=== PATIENT | male | born 1965 ===

== ENCOUNTER 2017-05-07 15:47 | Emergency (ER) | payer OTHER ==
[~2017-05-07] VITALS: Ht 162.6 cm; Wt 76.8 kg
[2017-05-07] MEDS ORDERED: normal saline 1000ML IV soln IV ONE (16:10)
[2017-05-07] MEDS ORDERED: acetaminophen 325mg tablet PO ONE (16:10)
[2017-05-07 16:37] LABS: BASOPHILS % (AUTO) 0.1 % (0-1); EOSINOPHILS # (AUTO) 0.3 X10'3 (0-0.9); EOSINOPHILS % (AUTO) 3.8 % (0-6); HEMATOCRIT 37.7 % (42.0-52.0); HEMOGLOBIN 13.4 g/dl (14.0-17.9); LYMPHOCYTES # (AUTO) 0.8 X10'3 (1.1-4.8); LYMPHOCYTES % (AUTO) 10.1 % (21-51); MEAN CORPUSCULAR HGB CONC 35.7 % (33.0-36.5); MEAN CORPUSCULAR VOLUME 95.3 FL (78-98); MEAN PLATELET VOLUME 7.2 FL (7.4-10.4); MONOCYTES # (AUTO) 1.1 X10'3 (0-0.9); MONOCYTES % (AUTO) 13.7 % (2-12); NEUTROPHILS # (AUTO) 5.7 X10'3 (1.8-7.7); NEUTROPHILS % (AUTO) 72.3 % (42-75); PLATELET COUNT 102 X10'3 (140-440); RED BLOOD COUNT 3.96 X10'6 (4.70-6.10); RED CELL DISTRIBUTION WIDTH 13.6 % (11.5-14.5); WHITE BLOOD COUNT 7.9 X10'3 (4.5-11.0)
[2017-05-07 16:52] LABS: INR 1.3 INR; PARTIAL THROMBOPLASTIN TIME 31 SECONDS (22-32); PROTHROMBIN TIME 12.9 SECONDS (9.0-12.0)
[2017-05-07 17:02] LABS: ALANINE AMINOTRANSFERASE 92 U/L (12-78); ALBUMIN/GLOBULIN RATIO 0.3 (1.1-1.5); ALKALINE PHOSPHATASE 194 IU/L (46-116); ANION GAP 7 (8-16); ASPARTATE AMINO TRANSFERASE 61 U/L (10-37); BILIRUBIN,TOTAL 1.5 MG/DL (0.1-1.0); BLOOD UREA NITROGEN 8 MG/DL (7-18); CALCIUM 8.1 MG/DL (8.5-10.1); CHLORIDE 96 MMOL/L (99-107); CREATININE 0.89 MG/DL (0.60-1.10); GLUCOSE 395 MG/DL (70-104); MAGNESIUM 1.5 MG/DL (1.5-2.4); POTASSIUM 3.9 MMOL/L (3.5-5.1); SODIUM 129 MMOL/L (135-145); TOTAL CARBON DIOXIDE 25.6 MMOL/L (24-32); TOTAL PROTEIN 7.8 G/DL (6.4-8.2); eGFR 89 ML/MIN
[2017-05-07] MEDS ORDERED: normal saline 1000ml 1,000 ML IV ONE (17:05)
[2017-05-07] MEDS ORDERED: LIDOcaine 1.5% w/epinephrine 1:200,000 5ml ampul IJ ONE (17:25)
[2017-05-07 17:51] LABS: C-REACTIVE PROTEIN 9.61 MG/DL (0.0-0.5)
[2017-05-07 20:12] LABS: APPEARANCE,SYNOVIAL FLUID CLOUDY; COLOR,SYNOVIAL FLUID YELLOW; SYN RBC 388 /CU MM (0); SYN WBC 39750 /CU MM (0-200)
[2017-05-07 20:13] LABS: CRYSTAL ID, SYN FLD CA PYROPHOSPHATE; SYNOVIAL FLUID CRYSTALS QT FEW
[2017-05-07] MEDS ORDERED: triamcinolone acetonide 40mg/ml inj IJ ONE (20:40)
[2017-05-07] MEDS ORDERED: COLC0.6T69 PO (20:44)
[2017-05-07] MEDS ORDERED: doxycycline hyclate 100mg tablet.DR PO ONE (21:25)
[2017-05-07] MEDS ORDERED: DOXY100C43 PO (21:29)
[2017-05-07 21:54] VITALS: BP 143/86
== END 2017-05-07 21:55 | disposition home or self-care (01) ==
LOC: EEVIPCON 15:48 → ER 15:48
DX: M11.261 Other chondrocalcinosis, right knee (principal); E10.9 Type 1 diabetes mellitus without complications; Z60.2 Problems related to living alone; Z88.6 Allergy status to analgesic agent; Z79.4 Long term (current) use of insulin; Z79.899 Other long term (current) drug therapy
CPT/HCPCS: 20610; 36415; 73560; 80053; 83605; 83735; 84145; 85025; 85610; 85651; 85730; 86140; 87040; 87070; 87077; 87186; 89051; 89060; 93005; 96360; 96361; 99285; J3301; J3490; J7030

== ENCOUNTER 2017-05-10 08:46 | Inpatient (IN) | payer OTHER ==
[~2017-05-10] VITALS: Ht 162.6 cm; Wt 75.0 kg
[~2017-05-10 08:46] MED LIST: COLC0.6T69 PO; DOXY100C43 PO
[2017-05-10] MEDS ORDERED: CefTRIAXone 2gm/NS 100ml IVPB 100 ML IV ONE (08:55)
[2017-05-10] MEDS ORDERED: normal saline 1000ML IV soln IV ONE (08:55)
[2017-05-10] MEDS ORDERED: vancomycin/NS 1 GM ADD-VANTAGE 250 ML IV ONE (08:55)
[2017-05-10 09:38] LABS: BASOPHILS % (AUTO) 0.1 % (0-1); EOSINOPHILS % (AUTO) 0 % (0-6); HEMATOCRIT 37.7 % (42.0-52.0); HEMOGLOBIN 13.3 g/dl (14.0-17.9); LYMPHOCYTES # (AUTO) 0.6 X10'3 (1.1-4.8); LYMPHOCYTES % (AUTO) 5.1 % (21-51); MEAN CORPUSCULAR HEMOGLOBIN 33.9 PG (27.0-31.0); MEAN CORPUSCULAR HGB CONC 35.1 % (33.0-36.5); MEAN CORPUSCULAR VOLUME 96.7 FL (78-98); MEAN PLATELET VOLUME 8.3 FL (7.4-10.4); MONOCYTES # (AUTO) 0.9 X10'3 (0-0.9); MONOCYTES % (AUTO) 8.3 % (2-12); NEUTROPHILS # (AUTO) 9.4 X10'3 (1.8-7.7); NEUTROPHILS % (AUTO) 86.5 % (42-75); PLATELET COUNT 101 X10'3 (140-440); RED CELL DISTRIBUTION WIDTH 14.4 % (11.5-14.5); WHITE BLOOD COUNT 10.9 X10'3 (4.5-11.0)
[2017-05-10 09:50] LABS: INR 1.3 INR; PARTIAL THROMBOPLASTIN TIME 28 SECONDS (22-32); PROTHROMBIN TIME 13.6 SECONDS (9.0-12.0)
[2017-05-10 09:56] LABS: ALANINE AMINOTRANSFERASE 93 U/L (12-78); ALBUMIN 2.2 G/DL (3.4-5.0); ALBUMIN/GLOBULIN RATIO 0.4 (1.1-1.5); ALKALINE PHOSPHATASE 338 IU/L (46-116); ANION GAP 5 (8-16); BLOOD UREA NITROGEN 14 MG/DL (7-18); BUN/CREATININE RATIO 17.5 (5.4-32.0); CHLORIDE 96 MMOL/L (99-107); GLUCOSE 433 MG/DL (70-104); MAGNESIUM 2.1 MG/DL (1.5-2.4); SODIUM 130 MMOL/L (135-145); TOTAL CARBON DIOXIDE 29.1 MMOL/L (24-32); TOTAL PROTEIN 8.2 G/DL (6.4-8.2); eGFR > 90 ML/MIN
[2017-05-10 09:57] LABS: CLARITY,URINE CLOUDY (Clear); COLOR,URINE STRAW (Yellow); GLUCOSE, URINE >=1000 mg/dl (Neg); KETONES,URINE NEGATIVE (Neg); LEUKOCYTE ESTERASE ,URINE NEGATIVE (Neg); NITRITES, URINE NEGATIVE (Neg); OCCULT BLOOD,URINE NEGATIVE (Neg); PH,URINE 7.5 (4.8-8.0); PROTEIN,URINE NEGATIVE (Neg)
[2017-05-10 09:58] LABS: ASPARTATE AMINO TRANSFERASE 85 U/L (10-37); POTASSIUM 4.5 MMOL/L (3.5-5.1)
[2017-05-10 10:00] LABS: UA COLLECTION TYPE VOIDED
[2017-05-10 10:04] LABS: AMORPHOUS URATES 3+; BACTERIA,URINE NONE SEEN /HPF (Neg); RBC,URINE 0-2 /HPF (0-2); SQUAMOUS EPITHELIAL CELL,UR NONE SEEN /LPF (FEW); WBC,URINE 0-4 /HPF (0-4)
[2017-05-10] MEDS: normal saline 1000ml 1,000 ML IV ONE ×2 (11:10→11:52)
[2017-05-10] MEDS ORDERED: AMIT50TA11 PO (11:46)
[2017-05-10] MEDS ORDERED: HYDR-4069 PO (11:48)
[2017-05-10] MEDS ORDERED: LANTUS SQ (11:49)
[2017-05-10] MEDS ORDERED: acetaminophen 325mg tablet PO PRN (11:50)
[2017-05-10] MEDS ORDERED: dextrose 50%-water 50ml dispensing syringe IV PRN ×2 (11:50)
[2017-05-10] MEDS ORDERED: magnesium Cl slow-release 64mg tablet PO PRN (11:50)
[2017-05-10] MEDS ORDERED: dextrose ORAL solution 15 GM/59 ML bottle PO PRN ×2 (11:50)
[2017-05-10] MEDS ORDERED: MESSAGE TO PHARMACY PO ONE (11:50)
[2017-05-10] MEDS ORDERED: magnesium hydroxide 30ml (MOM) UD suspension PO PRN (11:50)
[2017-05-10] MEDS ORDERED: potassium Cl 40MEQ/NS 500ml 500 ML IV PRN ×2 (11:50)
[2017-05-10] MEDS ORDERED: mag hydrox/Alum hydrox/simeth 30ml oral suspension PO PRN (11:50)
[2017-05-10] MEDS ORDERED: potassium Cl 20 mEq SR tablet PO PRN ×2 (11:50)
[2017-05-10] MEDS ORDERED: glucagon, human recombinant 1mg kit SUBCUT PRN (11:50)
[2017-05-10] MEDS ORDERED: morphine 2 MG/ML inj. syringe IV PRN (11:50)
[2017-05-10] MEDS ORDERED: magnesium 2GM in 50ml NS 50 ML IV PRN (11:50)
[2017-05-10] MEDS ORDERED: magnesium 4gm in 100ml NS 100 ML IV PRN (11:50)
[2017-05-10] MEDS ORDERED: ondansetron/PF 4mg/2ml inj IV PRN (11:50)
[2017-05-10] MEDS ORDERED: INSU100V5 SQ (11:50)
[2017-05-10] MEDS ORDERED: LACT10SO6 PO (11:51)
[2017-05-10] MEDS: normal saline 1000ml 1,000 ML IV SCH ×2 (12:34→22:48)
[2017-05-10] MEDS: insulin Lispro (HumaLOG) vial - multi-dose SQ SCH ×3 (13:17→21:14)
[2017-05-10 14:20] VITALS: BP 138/79
[2017-05-10] MEDS ORDERED: FLU VACC QS2017-18 36MOS UP/PF 60 MCG/0.5 ML SYRINGE IMVAC ONE (15:45)
[2017-05-10] MEDS: cefazolin 1gm/NS 100mL 100 ML IV SCH ×2 (16:09→23:25)
[2017-05-10] MEDS ORDERED: famotidine 20mg tablet PO ONE (16:10)
[2017-05-10] MEDS: morphine 2 MG/ML inj. syringe IV PRN ×2 (16:18→20:12)
[2017-05-10] MEDS: lactobacillus rhamnosus 10,000 MMU CELLS/CAPSULE PO SCH (17:08)
[2017-05-10 18:00] VITALS: BP 127/67
[2017-05-10] MEDS ORDERED: vancomycin/NS 1 GM ADD-VANTAGE 250 ML IV SCH (18:00)
[2017-05-10] MEDS: hydrALAZINE 25 MG tablet PO SCH (19:20)
[2017-05-10] MEDS: lactulose 20gm/30ml cup PO SCH (19:20)
[2017-05-10] MEDS: amitryptiline 50mg tablet PO SCH (21:16)
[2017-05-10] MEDS: insulin glargine (Lantus) pen - multi-dose SQ SCH (21:16)
[2017-05-10 22:00] VITALS: BP 125/65
[2017-05-11] VITALS (14 sets, daily range): BP systolic 120–159; BP diastolic 69–107
[2017-05-11 06:21] LABS: BASOPHILS % (AUTO) 0.2 % (0-1); EOSINOPHILS # (AUTO) 0.1 X10'3 (0-0.9); HEMATOCRIT 35.9 % (42.0-52.0); HEMOGLOBIN 12.6 g/dl (14.0-17.9); LYMPHOCYTES # (AUTO) 0.8 X10'3 (1.1-4.8); LYMPHOCYTES % (AUTO) 8.8 % (21-51); MEAN CORPUSCULAR HEMOGLOBIN 33.6 PG (27.0-31.0); MEAN CORPUSCULAR HGB CONC 35.1 % (33.0-36.5); MEAN CORPUSCULAR VOLUME 95.6 FL (78-98); MEAN PLATELET VOLUME 7.3 FL (7.4-10.4); MONOCYTES # (AUTO) 0.7 X10'3 (0-0.9); MONOCYTES % (AUTO) 8.5 % (2-12); NEUTROPHILS # (AUTO) 7.1 X10'3 (1.8-7.7); NEUTROPHILS % (AUTO) 81.5 % (42-75); PLATELET COUNT 96 X10'3 (140-440); RED BLOOD COUNT 3.75 X10'6 (4.70-6.10); RED CELL DISTRIBUTION WIDTH 14.7 % (11.5-14.5); WHITE BLOOD COUNT 8.8 X10'3 (4.5-11.0)
[2017-05-11 06:38] LABS: ALANINE AMINOTRANSFERASE 89 U/L (12-78); ALBUMIN 1.9 G/DL (3.4-5.0); ALBUMIN/GLOBULIN RATIO 0.4 (1.1-1.5); ALKALINE PHOSPHATASE 231 IU/L (46-116); ANION GAP 6 (8-16); ASPARTATE AMINO TRANSFERASE 62 U/L (10-37); BLOOD UREA NITROGEN 12 MG/DL (7-18); BUN/CREATININE RATIO 15.6 (5.4-32.0); CALCIUM 8.5 MG/DL (8.5-10.1); CHLORIDE 102 MMOL/L (99-107); CREATININE 0.77 MG/DL (0.60-1.10); GLUCOSE 299 MG/DL (70-104); MAGNESIUM 1.8 MG/DL (1.5-2.4); POTASSIUM 4.1 MMOL/L (3.5-5.1); SODIUM 133 MMOL/L (135-145); TOTAL CARBON DIOXIDE 24.9 MMOL/L (24-32); TOTAL PROTEIN 7.2 G/DL (6.4-8.2); eGFR > 90 ML/MIN
[2017-05-11] MEDS ORDERED: vancomycin 1,000mg inj ONE (07:04)
[2017-05-11] MEDS ORDERED: BUPIVAcaine/PF 2.5 mg/ml (0.25%) 30ml vial ONE (07:04)
[2017-05-11] MEDS: morphine 2 MG/ML inj. syringe IV PRN ×4 (07:11→12:28)
[2017-05-11] MEDS: lactobacillus rhamnosus 10,000 MMU CELLS/CAPSULE PO SCH ×2 (07:30→15:19)
[2017-05-11] MEDS: K and/or MAG REPLACEMENT MC SCH (08:00)
[2017-05-11] MEDS: lactulose 20gm/30ml cup PO SCH ×2 (08:00→21:18)
[2017-05-11] MEDS: colchicine 0.6mg tablet PO SCH (08:00)
[2017-05-11] MEDS: hydrALAZINE 25 MG tablet PO SCH ×2 (08:00→21:18)
[2017-05-11] MEDS: cefazolin 1gm/NS 100mL 100 ML IV SCH ×2 (08:00→15:15)
[2017-05-11] MEDS ORDERED: insulin regular, human vial - multi-dose ONE (08:01)
[2017-05-11] MEDS ORDERED: ringers solution, lacted 1,000 ML IV SCH (08:06)
[2017-05-11] MEDS ORDERED: meperidine/PF 50mg/ml syringe IV PRN ×3 (08:10)
[2017-05-11] MEDS ORDERED: ondansetron/PF 4mg/2ml inj IV PRN (08:10)
[2017-05-11] MEDS ORDERED: morphine 2 MG/ML inj. syringe IV PRN (08:10)
[2017-05-11] MEDS ORDERED: midazolam 2 mg/2 ml injection ONE (08:10)
[2017-05-11] MEDS ORDERED: proCHLORperazine 10 MG/2 ml inj IV PRN (08:10)
[2017-05-11] MEDS ORDERED: fentaNYL/PF 50MCG/1 ML 2ML syringe ONE (08:21)
[2017-05-11] MEDS ORDERED: ondansetron/PF 4mg/2ml inj ONE (08:34)
[2017-05-11] MEDS ORDERED: propofol inj 20 ML IV ONE (08:34)
[2017-05-11] MEDS ORDERED: dexamethasone sod phosphate 4mg/ml inj. ONE (08:34)
[2017-05-11] MEDS ORDERED: LIDOcaine 2% (20mg/ml) 5ml vial ONE (08:34)
[2017-05-11] MEDS ORDERED: VANCOMYCIN LEVEL IV NR (09:30)
[2017-05-11] MEDS: insulin Lispro (HumaLOG) vial - multi-dose SQ SCH ×2 (13:19→18:46)
[2017-05-11] MEDS ORDERED: FLU VACC QS2017-18 36MOS UP/PF 60 MCG/0.5 ML SYRINGE IMVAC ONE (15:10)
[2017-05-11] MEDS: normal saline 1000ml 1,000 ML IV SCH ×2 (15:15→18:41)
[2017-05-11] MEDS: amitryptiline 50mg tablet PO SCH (21:17)
[2017-05-11] MEDS: insulin glargine (Lantus) pen - multi-dose SQ SCH (21:21)
[2017-05-12] MEDS: cefazolin 1gm/NS 100mL 100 ML IV SCH ×4 (00:12→23:38)
[2017-05-12] MEDS: normal saline 1000ml 1,000 ML IV SCH ×3 (04:14→19:00)
[2017-05-12] MEDS ORDERED: HYDROcodone/acetaminophen 5mg/325mg tablet PO PRN (05:10)
[2017-05-12] MEDS: HYDROcodone/acetaminophen 10/325mg tab PO PRN ×3 (05:21→19:09)
[2017-05-12 06:57] LABS: BASOPHILS % (AUTO) 0.3 % (0-1); EOSINOPHILS # (AUTO) 0.2 X10'3 (0-0.9); EOSINOPHILS % (AUTO) 1.3 % (0-6); HEMATOCRIT 38.6 % (42.0-52.0); HEMOGLOBIN 13.6 g/dl (14.0-17.9); LYMPHOCYTES # (AUTO) 1.2 X10'3 (1.1-4.8); LYMPHOCYTES % (AUTO) 9.5 % (21-51); MEAN CORPUSCULAR HEMOGLOBIN 33.9 PG (27.0-31.0); MEAN CORPUSCULAR HGB CONC 35.2 % (33.0-36.5); MEAN CORPUSCULAR VOLUME 96.5 FL (78-98); MEAN PLATELET VOLUME 7.6 FL (7.4-10.4); MONOCYTES # (AUTO) 1.3 X10'3 (0-0.9); MONOCYTES % (AUTO) 9.8 % (2-12); NEUTROPHILS # (AUTO) 10.1 X10'3 (1.8-7.7); NEUTROPHILS % (AUTO) 79.1 % (42-75); PLATELET COUNT 117 X10'3 (140-440); RED CELL DISTRIBUTION WIDTH 14.5 % (11.5-14.5); WHITE BLOOD COUNT 12.8 X10'3 (4.5-11.0)
[2017-05-12 07:29] LABS: ALANINE AMINOTRANSFERASE 82 U/L (12-78); ALBUMIN/GLOBULIN RATIO 0.4 (1.1-1.5); ALKALINE PHOSPHATASE 217 IU/L (46-116); ANION GAP 6 (8-16); ASPARTATE AMINO TRANSFERASE 53 U/L (10-37); BILIRUBIN,TOTAL 0.9 MG/DL (0.1-1.0); BLOOD UREA NITROGEN 13 MG/DL (7-18); BUN/CREATININE RATIO 15.1 (5.4-32.0); CALCIUM 8.8 MG/DL (8.5-10.1); CHLORIDE 100 MMOL/L (99-107); CREATININE 0.86 MG/DL (0.60-1.10); GLUCOSE 380 MG/DL (70-104); MAGNESIUM 1.9 MG/DL (1.5-2.4); POTASSIUM 3.9 MMOL/L (3.5-5.1); SODIUM 133 MMOL/L (135-145); TOTAL CARBON DIOXIDE 27.5 MMOL/L (24-32); TOTAL PROTEIN 7.5 G/DL (6.4-8.2); eGFR > 90 ML/MIN
[2017-05-12] MEDS: lactobacillus rhamnosus 10,000 MMU CELLS/CAPSULE PO SCH ×2 (07:33→17:21)
[2017-05-12] MEDS: hydrALAZINE 25 MG tablet PO SCH ×2 (07:34→20:50)
[2017-05-12] MEDS: lactulose 20gm/30ml cup PO SCH ×2 (07:34→20:00)
[2017-05-12 07:47] VITALS: BP 126/71
[2017-05-12] MEDS: colchicine 0.6mg tablet PO SCH (08:05)
[2017-05-12] MEDS: K and/or MAG REPLACEMENT MC SCH (08:06)
[2017-05-12] MEDS: insulin Lispro (HumaLOG) vial - multi-dose SQ SCH ×4 (08:59→20:56)
[2017-05-12 18:00] VITALS: BP 118/73
[2017-05-12] MEDS: vancomycin/NS 1 GM ADD-VANTAGE 250 ML IV SCH (18:59)
[2017-05-12] MEDS: amitryptiline 50mg tablet PO SCH (20:50)
[2017-05-12] MEDS: morphine 2 MG/ML inj. syringe IV PRN (20:57)
[2017-05-12] MEDS: insulin glargine (Lantus) pen - multi-dose SQ SCH (21:02)
[2017-05-12 22:00] VITALS: BP 107/63
[2017-05-13] MEDS: morphine 2 MG/ML inj. syringe IV PRN (01:57)
[2017-05-13] MEDS: vancomycin/NS 1 GM ADD-VANTAGE 250 ML IV SCH ×3 (02:49→19:12)
[2017-05-13 06:23] LABS: BASOPHILS % (AUTO) 0.1 % (0-1); EOSINOPHILS # (AUTO) 0.4 X10'3 (0-0.9); EOSINOPHILS % (AUTO) 2.9 % (0-6); HEMATOCRIT 37.3 % (42.0-52.0); LYMPHOCYTES # (AUTO) 1.1 X10'3 (1.1-4.8); LYMPHOCYTES % (AUTO) 8.1 % (21-51); MEAN CORPUSCULAR HEMOGLOBIN 33.8 PG (27.0-31.0); MEAN CORPUSCULAR HGB CONC 34.8 % (33.0-36.5); MEAN CORPUSCULAR VOLUME 97.2 FL (78-98); MEAN PLATELET VOLUME 7.4 FL (7.4-10.4); MONOCYTES % (AUTO) 7.7 % (2-12); NEUTROPHILS % (AUTO) 81.2 % (42-75); PLATELET COUNT 103 X10'3 (140-440); RED BLOOD COUNT 3.84 X10'6 (4.70-6.10); RED CELL DISTRIBUTION WIDTH 14.8 % (11.5-14.5); WHITE BLOOD COUNT 13.5 X10'3 (4.5-11.0)
[2017-05-13 06:45] LABS: ALANINE AMINOTRANSFERASE 80 U/L (12-78); ALBUMIN 1.8 G/DL (3.4-5.0); ALBUMIN/GLOBULIN RATIO 0.4 (1.1-1.5); ALKALINE PHOSPHATASE 307 IU/L (46-116); ANION GAP 7 (8-16); ASPARTATE AMINO TRANSFERASE 59 U/L (10-37); BLOOD UREA NITROGEN 13 MG/DL (7-18); BUN/CREATININE RATIO 16.3 (5.4-32.0); CALCIUM 7.8 MG/DL (8.5-10.1); CHLORIDE 102 MMOL/L (99-107); GLUCOSE 239 MG/DL (70-104); MAGNESIUM 1.6 MG/DL (1.5-2.4); POTASSIUM 3.6 MMOL/L (3.5-5.1); SODIUM 134 MMOL/L (135-145); TOTAL CARBON DIOXIDE 25.4 MMOL/L (24-32); TOTAL PROTEIN 6.8 G/DL (6.4-8.2); eGFR > 90 ML/MIN
[2017-05-13 07:12] VITALS: BP 114/61
[2017-05-13] MEDS: lactulose 20gm/30ml cup PO SCH ×3 (07:56→21:18)
[2017-05-13] MEDS: lactobacillus rhamnosus 10,000 MMU CELLS/CAPSULE PO SCH ×2 (07:56→16:54)
[2017-05-13] MEDS: colchicine 0.6mg tablet PO SCH (07:56)
[2017-05-13] MEDS: cefazolin 1gm/NS 100mL 100 ML IV SCH ×2 (07:56→15:41)
[2017-05-13] MEDS: hydrALAZINE 25 MG tablet PO SCH ×2 (07:56→21:18)
[2017-05-13] MEDS: K and/or MAG REPLACEMENT MC SCH (08:00)
[2017-05-13] MEDS: insulin Lispro (HumaLOG) vial - multi-dose SQ SCH ×3 (09:13→21:17)
[2017-05-13] MEDS: HYDROcodone/acetaminophen 10/325mg tab PO PRN ×2 (09:24→21:19)
[2017-05-13] MEDS: normal saline 1000ml 1,000 ML IV SCH ×2 (09:27→19:12)
[2017-05-13 11:12] LABS: HEP B CORE AB, TOT Negative (Negative); HEPATITIS C ANTIBODY >11.0 s/co ratio (0.0-0.9)
[2017-05-13 18:00] VITALS: BP 132/73
[2017-05-13] MEDS ORDERED: VANCOMYCIN LEVEL IV ONE (18:30)
[2017-05-13] MEDS: insulin glargine (Lantus) pen - multi-dose SQ SCH (21:18)
[2017-05-13] MEDS: amitryptiline 50mg tablet PO SCH (21:18)
[2017-05-13 22:00] VITALS: BP 132/70
[2017-05-14] MEDS: cefazolin 1gm/NS 100mL 100 ML IV SCH ×3 (00:16→16:52)
[2017-05-14] MEDS: vancomycin/NS 1 GM ADD-VANTAGE 250 ML IV SCH (03:09)
[2017-05-14 06:00] VITALS: BP 125/68
[2017-05-14 06:20] LABS: BASOPHILS % (AUTO) 0 % (0-1); EOSINOPHILS # (AUTO) 0.5 X10'3 (0-0.9); EOSINOPHILS % (AUTO) 4.7 % (0-6); HEMATOCRIT 36.9 % (42.0-52.0); HEMOGLOBIN 13.1 g/dl (14.0-17.9); LYMPHOCYTES # (AUTO) 1.3 X10'3 (1.1-4.8); LYMPHOCYTES % (AUTO) 12.9 % (21-51); MEAN CORPUSCULAR HEMOGLOBIN 33.9 PG (27.0-31.0); MEAN CORPUSCULAR HGB CONC 35.4 % (33.0-36.5); MEAN CORPUSCULAR VOLUME 95.7 FL (78-98); MEAN PLATELET VOLUME 7.4 FL (7.4-10.4); MONOCYTES # (AUTO) 1.2 X10'3 (0-0.9); MONOCYTES % (AUTO) 12.1 % (2-12); NEUTROPHILS # (AUTO) 6.9 X10'3 (1.8-7.7); NEUTROPHILS % (AUTO) 70.3 % (42-75); PLATELET COUNT 97 X10'3 (140-440); RED BLOOD COUNT 3.85 X10'6 (4.70-6.10); WHITE BLOOD COUNT 9.8 X10'3 (4.5-11.0)
[2017-05-14 06:42] LABS: ALANINE AMINOTRANSFERASE 83 U/L (12-78); ALBUMIN 1.9 G/DL (3.4-5.0); ALBUMIN/GLOBULIN RATIO 0.4 (1.1-1.5); ALKALINE PHOSPHATASE 301 IU/L (46-116); ANION GAP 8 (8-16); ASPARTATE AMINO TRANSFERASE 69 U/L (10-37); BILIRUBIN,TOTAL 1.2 MG/DL (0.1-1.0); BLOOD UREA NITROGEN 8 MG/DL (7-18); BUN/CREATININE RATIO 10.5 (5.4-32.0); CALCIUM 7.9 MG/DL (8.5-10.1); CHLORIDE 102 MMOL/L (99-107); CREATININE 0.76 MG/DL (0.60-1.10); GLUCOSE 234 MG/DL (70-104); MAGNESIUM 1.6 MG/DL (1.5-2.4); POTASSIUM 3.2 MMOL/L (3.5-5.1); SODIUM 134 MMOL/L (135-145); TOTAL PROTEIN 6.8 G/DL (6.4-8.2); eGFR > 90 ML/MIN
[2017-05-14] MEDS: lactobacillus rhamnosus 10,000 MMU CELLS/CAPSULE PO SCH ×2 (07:40→16:52)
[2017-05-14] MEDS: colchicine 0.6mg tablet PO SCH (07:40)
[2017-05-14] MEDS: hydrALAZINE 25 MG tablet PO SCH ×2 (07:40→20:56)
[2017-05-14] MEDS: K and/or MAG REPLACEMENT MC SCH (08:37)
[2017-05-14] MEDS: lactulose 20gm/30ml cup PO SCH ×2 (09:47→20:00)
[2017-05-14] MEDS: insulin Lispro (HumaLOG) vial - multi-dose SQ SCH ×3 (09:50→18:58)
[2017-05-14] MEDS: HYDROcodone/acetaminophen 10/325mg tab PO PRN ×2 (09:51→20:56)
[2017-05-14 10:00] VITALS: BP 137/78
[2017-05-14] MEDS: vancomycin inj 1,250 MG in normal saline 250ml IV soln 250 ML IV SCH ×2 (11:42→19:00)
[2017-05-14] MEDS: normal saline 1000ml 1,000 ML IV SCH ×2 (11:42→15:46)
[2017-05-14 18:00] VITALS: BP 119/71
[2017-05-14] MEDS: amitryptiline 50mg tablet PO SCH (20:56)
[2017-05-14] MEDS: insulin glargine (Lantus) pen - multi-dose SQ SCH (21:10)
[2017-05-14 22:00] VITALS: BP 125/79
[2017-05-15] MEDS: normal saline 1000ml 1,000 ML IV SCH ×2 (01:01→11:46)
[2017-05-15] MEDS: cefazolin 1gm/NS 100mL 100 ML IV SCH ×2 (01:01→07:27)
[2017-05-15] MEDS: HYDROcodone/acetaminophen 10/325mg tab PO PRN ×2 (01:26→07:47)
[2017-05-15] MEDS ORDERED: potassium Cl 40MEQ/NS 500ml 500 ML IV PRN ×2 (03:50)
[2017-05-15] MEDS ORDERED: potassium Cl 20 mEq SR tablet PO PRN ×2 (03:50)
[2017-05-15] MEDS: vancomycin inj 1,250 MG in normal saline 250ml IV soln 250 ML IV SCH ×2 (03:55→11:00)
[2017-05-15 05:00] VITALS: BP 125/71
[2017-05-15 05:40] LABS: ALANINE AMINOTRANSFERASE 80 U/L (12-78); ALBUMIN 1.8 G/DL (3.4-5.0); ALBUMIN/GLOBULIN RATIO 0.4 (1.1-1.5); ALKALINE PHOSPHATASE 250 IU/L (46-116); ANION GAP 5 (8-16); ASPARTATE AMINO TRANSFERASE 83 U/L (10-37); BASOPHILS % (AUTO) 0.4 % (0-1); BILIRUBIN,TOTAL 1.3 MG/DL (0.1-1.0); BLOOD UREA NITROGEN 8 MG/DL (7-18); BUN/CREATININE RATIO 13.3 (5.4-32.0); CALCIUM 8.1 MG/DL (8.5-10.1); CHLORIDE 103 MMOL/L (99-107); EOSINOPHILS # (AUTO) 0.4 X10'3 (0-0.9); EOSINOPHILS % (AUTO) 4.6 % (0-6); GLUCOSE 194 MG/DL (70-104); HEMATOCRIT 35.8 % (42.0-52.0); HEMOGLOBIN 12.7 g/dl (14.0-17.9); LYMPHOCYTES # (AUTO) 1.2 X10'3 (1.1-4.8); LYMPHOCYTES % (AUTO) 13.1 % (21-51); MAGNESIUM 1.5 MG/DL (1.5-2.4); MEAN CORPUSCULAR HEMOGLOBIN 33.9 PG (27.0-31.0); MEAN CORPUSCULAR HGB CONC 35.3 % (33.0-36.5); MEAN PLATELET VOLUME 7.4 FL (7.4-10.4); MONOCYTES # (AUTO) 1.3 X10'3 (0-0.9); NEUTROPHILS # (AUTO) 6.5 X10'3 (1.8-7.7); NEUTROPHILS % (AUTO) 67.9 % (42-75); PLATELET COUNT 98 X10'3 (140-440); POTASSIUM 3.3 MMOL/L (3.5-5.1); RED BLOOD COUNT 3.73 X10'6 (4.70-6.10); SODIUM 134 MMOL/L (135-145); TOTAL CARBON DIOXIDE 25.6 MMOL/L (24-32); TOTAL PROTEIN 6.7 G/DL (6.4-8.2); WHITE BLOOD COUNT 9.5 X10'3 (4.5-11.0); eGFR > 90 ML/MIN
[2017-05-15] MEDS: lactobacillus rhamnosus 10,000 MMU CELLS/CAPSULE PO SCH (07:27)
[2017-05-15] MEDS: lactulose 20gm/30ml cup PO SCH (07:27)
[2017-05-15] MEDS: K and/or MAG REPLACEMENT MC SCH (07:28)
[2017-05-15] MEDS: hydrALAZINE 25 MG tablet PO SCH (07:28)
[2017-05-15] MEDS: colchicine 0.6mg tablet PO SCH (07:28)
[2017-05-15] MEDS: insulin Lispro (HumaLOG) vial - multi-dose SQ SCH ×2 (07:54→13:42)
[2017-05-15] MEDS ORDERED: iohexol 350MG/ML 100ml bottle IV ONE (09:25)
[2017-05-15 09:52] VITALS: BP 111/69
[2017-05-15] MEDS ORDERED: VANCOMYCIN LEVEL IV ONE (10:30)
[2017-05-15] MEDS ORDERED: HYDR-3972 PO (11:43)
[2017-05-15] MEDS ORDERED: LEVO750T46 PO (11:43)
[2017-05-15] MEDS ORDERED: COLC0.6T69 PO (11:43)
[2017-05-15] MEDS ORDERED: cefazolin 1gm/NS 100mL 100 ML IV SCH (16:00)
[2017-05-16] MEDS ORDERED: levoFLOXACIN 750MG TABLET PO SCH (11:00)
== END 2017-05-15 14:25 | DRG 486 ==
LOC: EEVIPCON 08:47 → ER 08:47 → ED HOLD 11:46 → ORTHO 4S 14:14
PROVIDERS: ADMIT Legal Medicine; ATTEND Internal Medicine Nephrology
PROC: 0S9C0ZZ Drainage of Right Knee Joint, Open Approach (ICD-10-PCS; principal; 2017-05-11 07:48)
PROC: B32T1ZZ Computerized Tomography (CT Scan) of Left Pulmonary Artery using Low Osmolar Contrast (ICD-10-PCS; 2017-05-15)
PROC: B3201ZZ Computerized Tomography (CT Scan) of Thoracic Aorta using Low Osmolar Contrast (ICD-10-PCS; 2017-05-15)
PROC: B32S1ZZ Computerized Tomography (CT Scan) of Right Pulmonary Artery using Low Osmolar Contrast (ICD-10-PCS; 2017-05-15)
DX: M00.062 Staphylococcal arthritis, left knee (principal); E87.2 Acidosis; K74.60 Unspecified cirrhosis of liver; E03.9 Hypothyroidism, unspecified; E10.9 Type 1 diabetes mellitus without complications; B19.20 Unspecified viral hepatitis C without hepatic coma; B95.61 Methicillin susceptible Staphylococcus aureus infection as the cause of diseases classified elsewhere; M11.20 Other chondrocalcinosis, unspecified site; Z60.2 Problems related to living alone; F17.210 Nicotine dependence, cigarettes, uncomplicated; I10 Essential (primary) hypertension; Z16.29 Resistance to other single specified antibiotic; Z65.3 Problems related to other legal circumstances; Z79.82 Long term (current) use of aspirin; Z88.6 Allergy status to analgesic agent
CPT/HCPCS: 96365; 96366; 96368; 99285; Z7506; 36415; 71275; 80053; 80202; 81001; 82948; 83036; 83605; 83735; 84145; 84443; 85025; 85610; 85651; 85730; 86140; 86704; 86803; 87040; 87070; 93005; A6258; A7000; J0690; J0696; J1100; J1815; J2001; J2250; J2270; J2405; J2704; J3010; J3370; J3490; J7030; J7120; Q2037; Q9967